=== PATIENT | female | born 1940 | race Caucasian/White ===

== ENCOUNTER → 2024-01-21 11:15 | Outpatient (REF) | payer MEDICARE, OTHER, SELFPAY ==
[2024-01-21 12:46] LABS: % Basophils 0.7 % (0-2); % Eosinophils 3.3 % (0-6); % Immature Granulocytes 0.7 % (0-0.5); % Lymphocytes 32.1 % (20.5-51.1); % Monocytes 11.6 % (1.7-9.3); % Neutrophils 51.6 % (42.2-75.2); Absolute Basophils 0.1 10^3/uL (0-0.2); Absolute Eosinophils 0.3 10^3/uL (0-0.7); Absolute Immature Granulocytes 0.1 10^3/uL (0-0.05); Absolute Lymphocytes 2.7 10^3/uL (1.2-3.4); Absolute Neutrophils 4.3 10^3/uL (1.4-6.5); Hematocrit 38.7 % (37.0-47.0); Hemoglobin 12.8 g/dL (12.0-16.0); Mean Corp Hgb Conc. 33.1 g/dL (33.0-37.0); Mean Corpuscular Hgb 30.5 pg (27.0-31.0); Mean Corpuscular Volume 92.1 fL (81.0-99.0); Mean Platelet Volume 10.6 fL (7.4-10.4); Nucleated Red Blood Cells % 0 %; Platelet Count 293 10^3/uL (130-400); Red Cell Dist. Width 13.4 % (11.5-14.5); White Blood Cell Count 8.4 10^3/uL (4.8-10.8)
[2024-01-21 14:03] LABS: ALT (SGPT) 23 U/L (0-35); AST (SGOT) 21 U/L (14-36); Albumin 4.6 g/dl (3.5-5.0); Alkaline Phosphatase 64 U/L (38-126); Blood Urea Nitrogen 31 mg/dl (7-17); Calcium 9.8 mg/dl (8.4-10.2); Carbon Dioxide 24 mmol/L (22-30); Chloride 105 mmol/L (98-107); Glucose 102 mg/dl (70-99); HDL Cholesterol 92 mg/dl; LDL Cholesterol, Calculated 85 mg/dl; Sodium 137 mmol/L (135-145); Total Bilirubin 0.7 mg/dl (0.2-1.3); Total Cholesterol 193 mg/dl (50-199); Total Protein 7.4 g/dl (6.3-8.2); Triglyceride 84 mg/dl (10-149); Very Low Density Lipoprotein 16 mg/dl (0-30); eGFR 41.31
[2024-01-21 14:17] LABS: Intact PTH 149.5 pg/ml (13.6-85.8)
[2024-01-21 14:24] LABS: Glycohemoglobin (HgbA1c) 5.6 % (4.0-5.6)
[2024-01-21 14:34] LABS: TSH 2.03 uIU/ml (0.47-4.68)
== END ==
LOC: REG 11:15
PROVIDERS: ATTENDING PHYSICIAN Family Medicine
DX: I10 Essential (primary) hypertension (principal); E78.2 Mixed hyperlipidemia; N18.32 Chronic kidney disease, stage 3b; I77.810 Thoracic aortic ectasia; K21.9 Gastro-esophageal reflux disease without esophagitis; R73.01 Impaired fasting glucose
CPT/HCPCS: 36415; 80053; 80061; 83036; 83970; 84443; 85025

== ENCOUNTER 2024-03-04 11:41 | Inpatient (IN) | payer MEDICARE, OTHER, SELFPAY ==
[2024-02-13 12:19] VITALS: BMI 31.3
[2024-02-13 13:55] LABS: Hematocrit 38.1 % (37.0-47.0); Hemoglobin 12.7 g/dL (12.0-16.0); Mean Corp Hgb Conc. 33.3 g/dL (33.0-37.0); Mean Corpuscular Hgb 31.1 pg (27.0-31.0); Mean Corpuscular Volume 93.4 fL (81.0-99.0); Mean Platelet Volume 10.1 fL (7.4-10.4); Platelet Count 325 10^3/uL (130-400); Red Blood Cell Count 4.08 10^6/uL (4.20-5.40); Red Cell Dist. Width 13.5 % (11.5-14.5); White Blood Cell Count 7.4 10^3/uL (4.8-10.8)
[2024-02-13 14:13] LABS: ALT (SGPT) 18 U/L (0-35); AST (SGOT) 24 U/L (14-36); Albumin 5.2 g/dl (3.5-5.0); Alkaline Phosphatase 72 U/L (38-126); Blood Urea Nitrogen 20 mg/dl (7-17); Calcium 10.3 mg/dl (8.4-10.2); Carbon Dioxide 27 mmol/L (22-30); Chloride 100 mmol/L (98-107); Estimated Creatinine Clearance 35 ml/min; Glucose 99 mg/dl (70-99); Potassium 5.3 mmol/L (3.5-5.1); Sodium 140 mmol/L (135-145); Total Bilirubin 0.6 mg/dl (0.2-1.3); Total Protein 8.1 g/dl (6.3-8.2); eGFR 41.06
[2024-02-13 14:18] LABS: Glycohemoglobin (HgbA1c) 5.5 % (4.0-5.6)
--- NOTE | 2024-02-13 16:08 | VNURNOTE ---
Patient is scheduled for an elective R TKA on 03/04/[address] Harrison. Spoke with patient prior to surgery via telephone.
Introduced role of [facility] Liaison. Patient reports that she lives with her spouse Kye in a one story home [place] a [place] community. There is 1 step to enter. Patient will borrow a rolling walker and elevated toilet seat from her neighbor. PCP is Dr Aleshia (~).
Discussed orthopedic program and post surgical plans. Reviewed anticipated length of stay and that goal is for her to return home at discharge.
Also reviewed outpatient PT. Patient is in agreement with tentative plan but feels she will need VN services. She has not thought about an outpt PT service. Patient selects [facility]. She will have support from her spouse when she goes home.
Plan: RUIZ UNGER
[2024-02-27 10:58] VITALS: BMI 31.3
[2024-03-04] VITALS (9 sets, daily range): BP systolic 104–153; BP diastolic 44–85; BMI 31.3
[2024-03-04] MEDS: NORMOSOL-R/PLASMALYTE-A 1000 IV (12:16)
[2024-03-04] MEDS: CELEBREX 200 MG PO (12:18)
[2024-03-04] MEDS: TYLENOL 650 MG PO (12:18)
--- NOTE | 2024-03-04 16:19 | OR.RPT ---
Operative Report
Operative Report
Orthopaedic Surgery Operative Note
DATE OF OPERATION: 03/04/2024
PREOPERATIVE DIAGNOSES: Osteoarthritis, right knee.
POSTOPERATIVE DIAGNOSES: Osteoarthritis, right knee.
OPERATION PERFORMED:
1) Right total knee arthroplasty (CPT 29227)
2) Intraosseous administration of analgesic (CPT 02036)
SURGEON: Pedro aHrrison MD
ASSISTANTS: Qamar Hirsch PA-C who helped with patient and limb positioning and retraction
ANESTHESIA: Spinal by anesthesia plus intraoperative infusion of morphine into the tibial metaphysis by Dr. Harrison
COMPLICATIONS: None.
ESTIMATED BLOOD LOSS: 20mL
DRAINS: None
TOURNIQUET TIME: 51 minutes.
IMPLANTS:
- Edita Persona CR Femur, size 6
- Edita Persona tibia base plate, size D
- Edita Persona ultracongruent articular surface, 10 mm
- DJO [place] bone cement
INDICATIONS: The patient presented to my office with debilitating right knee pain due to osteoarthritis. We reviewed the natural history of this problem, as well as the risks, benefits, and alternatives of various treatment options. The patient
exhausted all nonoperative treatment options and wished to proceed with knee replacement surgery. The patient understood the risks which included, but were not limited to, bleeding, infection, failure to relieve pain, more pain than preop, damage to
blood vessels and nerves, need for reoperation, mechanical failure of the implants, wound healing problems, stiffness, instability, blood clot, pulmonary embolism, myocardial infarction, pneumonia, arrhythmia, CVA, and . The patient accepted
these risks and wished to proceed. All questions were answered, and informed consent was obtained.
PROCEDURE IN DETAIL: The patient was identified in the preoperative holding area. The right knee was identified as the operative site. The patient was taken in the operating room and placed in a supine position on the operating table. Spinal
anesthesia was performed. IV antibiotics and tranexamic acid were administered. An SCD was placed on the left lower extremity. A well-padded tourniquet was placed on the proximal thigh. All bony prominences were well padded. The right lower
extremity was prepped and draped in the usual sterile fashion.
We performed a surgical time-out. An interarticular block was performed with local anesthetic with epinephrine. The limb was exsanguinated with an Esmarch bandage, then the tourniquet was inflated to 250 mmHg. I performed interosseous administration
of morphine-saline solution via a Jamshidi style intraosseous needle into the proximal medial tibial metaphysis as described by Nikolay Ortiz MD. This was performed to aid in pain control. A midline skin incision was made followed by a medial
parapatellar arthrotomy. A subperiosteal peel was performed on the medial tibia. I excised part of the infrapatellar fat pad to improve our visualization as well as tissue over anterior femur. The patella was everted and the knee was flexed. I
excised the remnants of the anterior and posterior cruciate ligaments as well as tibial and femoral osteophytes with rongeurs.
The knee was flexed, and the extramedullary tibial cutting guide was aligned. [place] was aligned at neutral, rotation was centered on the tibial tubercle, and coronal alignment was aligned with the mechanical axis of the tibia and center of the ankle
joint. The cut height was 10mm off the lateral tibia joint surface. The guide was secured into place. The MCL and LCL were protected. The tibia surface was cut. The cut surface was inspected after removal to ensure appropriate height and slope based
on the preoperative plan. The cut was checked with a drop taz. It was centered nicely at the ankle.
A drill was used to open the femoral canal. The intramedullary distal femoral cutting guide was inserted into the femur. This was set at 5 degrees +0. This was secured into place with three pins. The cut level was checked with an clement wing. The
distal femur was cut through the cutting guide. The IM guide was reinserted to double check that the level of resection was flush and in appropriate alignment.
Liana�s line and the transepicondylar axis were marked on the femur. The femoral sizing guide was applied to the anterior femur. Pins were inserted, and the 4-in-1 cutting guide was applied and secured into place. The rotation was compared to
Liana�s line, the transepicondylar axis, and the neutral tibia cut and was found to be appropriate. The width was checked and found to be appropriate and lateralized on the femur. The anterior, posterior, and chamfur cuts were made. A lamina
actionscript developer was used to open the flexion gap, and posterior osteophytes were removed with a curved osteotome. The remnant medial and lateral meniscus were also removed. I prophylactically cauterized the lateral geniculate arteries. A 10mm spacer block
was applied to the flexion gap and was noted to be balanced medially and laterally. The knee was extended, and the block showed symmetric to extension and flexion gaps.
The tibia was exposed and sized. Rotation was set in line with the tibial tubercle and congruent with the femur. The trial was secured into place with two pins. The trial femur was impacted into place, and a trial articular surface was placed. The
knee was taken through range of motion and noted to be stable throughout the arc of motion without gaping or excess tension. The patella was noted to track centrally throughout the arc of motion without need for further releases. No full thickness
cartilage defects.
The trials were removed. The tibia keel was prepared with the punch and the drill. The bone surfaces were irrigated with sterile saline and dried. The cement was mixed in a vacuum mixer. Cement gun was used to apply cement to the tibial surface and
the undersurface of the tibial implant. Cement was pressurized into the tibial canal and tibia surface. The tibial component was impacted into place. Excess cement was removed. Cement was applied to the femoral surface and the femoral component. The
femoral component was impacted into place, and excess cement removed. A trial articular surface was inserted, and the knee was extended while the cement polymerized. The tourniquet was let down, and meticulous hemostasis was achieved. Dilute
betadine was poured into the wound and allowed to soak for 3 minutes. The knee was irrigated with copious normal saline.
Once the cement was polymerized, the trial articular surface was removed. Any excess cement was removed. The knee was trialed, and the final articular surface was selected and inserted into the tibial locking mechanism. The knee was reduced. A fresh
drape was applied to the surgical field.
The arthrotomy was closed with 0-PDS. Once closed, an interarticular block was performed with local anesthetic with epi. The deep dermal layer was closed with 2-0 PDS, and the subcuticular skin was closed with 3-0 monocryl. A Dermabond Prineo
dressing was applied to the skin in full flexion. Once this was completely dry, a sterile waterproof dressing was applied.
The anesthesia team performed an adductor canal block in the OR. The patient awoke from anesthesia without any difficulties. The sponge and instrument counts were correct x2 at the end of the case.
Angel Harrison MD
[2024-03-04] MEDS: ROXICODONE 5 MG PO (16:51)
--- NOTE | 2024-03-04 17:32 | PTCARENOTE ---
pt admitted to 2S room 2110 from the PACU at 1715. pt arrived awake and alert. assessment completed as documented. Right knee dressing clean and dry, ice pack in place. pt offering no c/o pain at time of arrival. pt oriented to room, call richard,
bed controls and plan of care with verbalized understanding. offers no urge to void, pt verbalized understanding of need to call for assistance to get out of bed. will observe.
[2024-03-04] MEDS: ASPIRIN 325 MG PO (17:45)
[2024-03-04] MEDS: NSS 1000 IV (17:46)
[2024-03-04] MEDS: BACTROBAN 2% OINTMENT 1 APPLIC NASAL (20:51)
[2024-03-04] MEDS: COLACE 100 MG PO (20:52)
[2024-03-04] MEDS: SENOKOT 17.2 MG PO (20:52)
[2024-03-04] MEDS: DECADRON 4 MG PO (20:52)
[2024-03-04] MEDS: ANCEF 5 IV (21:00)
[2024-03-05] MEDS: ROXICODONE 5 MG PO ×2 (01:12→08:15)
[2024-03-05 03:20] VITALS: BP 121/75
[2024-03-05] MEDS: ANCEF 5 IV (05:05)
[2024-03-05 07:50] VITALS: BP 124/62
--- NOTE | 2024-03-05 07:50 | W.PN.ORTHO ---
Today's Communication / Plan
-
POD#[address] aHrrison
--WBAT. Ambulate with assistance
--PT/OT
--Pain control as needed
--Aspirin 325mg daily x4 weeks for DVT prophylaxis
--Maintain dressing until postop appointment
--Stable for discharge home today pending PT evaluation
Assessment
.
Distal Motor Intact: Yes
Dressing:
Clean, dry and intact.
Plan
.
Surgery / Date: Right TKA 03/04/24
DVT Prophylaxis: Aspirin
Activity:
Out of bed.
PT/OT
Subjective
.
.:
Patient resting comfortably in bed this morning. She reports that her pain is manageable. She has not worked with PT yet
Vital Signs and Labs
.
Vital Signs and Labs:
Lab Results
02/13/24 12:28
02/13/24 12:28
Temp Pulse Resp BP Pulse Ox
97.7 F 85 18 121/75 96
03/05/24 03:20 03/05/24 03:20 03/05/24 03:20 03/05/24 03:20 03/05/24 03:20
Non-invasive Hgb result: 11.3
Physical Exam
-
Directed exam of right knee with surgical dressing in place. Clean, dry, and intact. Mild expectected edema. Decreased ROM of knee due to pain and swelling. Able to plantarflex and dorsiflex the ankle. Calf soft and nontender. NVI distally
[2024-03-05] MEDS: BACTROBAN 2% OINTMENT 1 APPLIC NASAL (08:15)
[2024-03-05] MEDS: ASPIRIN 325 MG PO (08:16)
[2024-03-05] MEDS: ZESTRIL 10 MG PO (08:16)
[2024-03-05] MEDS: COLACE PO (08:16)
[2024-03-05] MEDS: LIPITOR 10 MG PO (08:16)
[2024-03-05] MEDS: PROTONIX 40 MG PO (08:16)
[2024-03-05] MEDS: DECADRON 4 MG PO (08:16)
[2024-03-05] MEDS: NORVASC 10 MG PO (08:16)
[2024-03-05] MEDS: SENOKOT PO (08:17)
[2024-03-05 09:11] VITALS: BP 133/64; PULSE 101
[2024-03-05 09:55] VITALS: BP 120/74; PULSE 101; O2SAT 95
[2024-03-05 10:31] VITALS: BP 99/65
--- NOTE | 2024-03-05 11:45 | CM ---
Met with patient and at bedside; initial assessment completed
IMM benefit explained; form signed @ 1130
Pharmacy verified: [facility] @ [address] [facility]
Patient and live in one story [place]; 1 step to enter; bathroom has stall shower with grab bar
PLOF: patient reported she is independent with ADLs; prior to surgery she ambulated without a device
DME: going home with a rolling walker
No SNF or Home Health utilization history
will transport home
Case Management Consult completed. Discussed discharge planning; recommendation for Home PT until she is able to start outpatient PT; Home Health agency options provided; preference [facility]; referral sent and acknowledged by [facility] liaison
Plan: Discharge to home with [facility] Home [facility] for PT
--- NOTE | 2024-03-05 12:17 | W.DS.TRANS ---
DC Summary - Teaching Associate
-
Discharge Instructions:
Sleep Apnea Risk Low
Discharge Diagnosis/Procedures Right Total Knee Replacement
Diet As tolerated
Activity With assistance
Additional Activity WBAT RLE with use of walker/cane for ambulatory
assistance
Driving Restrictions Not until seen by your Dr
Bathing Restrictions OK to Shower
Wound Care Leave Mepilex dressing intact until post-op
visit.
Instructions:
Stand-Alone Forms:
Changes to Home Medications: No
Discharge Medications:
DC Medications w/original date entered in [facility]
acetaminophen 500 mg tablet (Tylenol Extra Strength) 1,000 mg PO Q6H PRN pain 02/27/24
amlodipine 10 mg tablet 10 mg PO DAILY 02/27/24
aspirin 81 mg chewable tablet 81 mg PO DAILY 02/27/24
atorvastatin 10 mg tablet 10 mg PO DAILY 02/27/24
lisinopril 10 mg tablet 10 mg PO DAILY 02/27/24
omeprazole 20 mg tablet,delayed release 20 mg PO DAILY 02/27/24
aspirin 325 mg tablet 325 mg PO DAILY Blood clot prevention/tx #30 tabs 03/04/24
dexamethasone 4 mg tablet 4 mg PO BID 3 days #7 tabs 03/04/24
docusate sodium 100 mg capsule 100 mg PO BID Constipation #30 caps 03/04/24
ondansetron 4 mg disintegrating tablet 4 mg PO Q6H PRN nausea and vomiting #30 tabs 03/04/24
oxycodone 5 mg tablet 5 mg PO Q6 PRN moderate pain #30 tabs 03/04/24
Home Medication Changes
Pending Results: No
--- NOTE | 2024-03-05 12:18 | W.DCSUMMARY ---
Discharge Summary
Discharge Data
Date of Admission: 03/04/24
Date of Discharge: 03/05/24
-
Pending Results: No
Hospital Course
84 year old female admitted to the hospital following elective right total knee replacement on 03/04/[address] Harrison. She was monitored overnight. She was able to work with physical therapy. Once she was medically stable and her pain was
controlled, she was stable for discharge to home. She will be weight bearing as tolerated to the right leg. She will take aspirin 325mg daily for DVT prophylaxis for one month postoperatively. She will have an outpatient follow up appointment in two
weeks.
Discharge Plan
-
Patient Disposition: Home (Routine Discharge)
Discharge Diagnosis/Procedures: Right Total Knee Replacement
Diet: As tolerated
Activity: With assistance
Additional Activity: WBAT RLE with use of walker/cane for ambulatory assistance
Driving Restrictions: Not until seen by your Dr
Bathing Restrictions: OK to Shower
Wound Care: Leave Mepilex dressing intact until post-op visit.
Referrals:
Gio Monk DO [Family Provider] -
Pedro Harrison MD [Active] - in two weeks
Prescriptions:
New
aspirin 325 mg Tablet
325 mg PO DAILY Qty: 30 0RF
docusate sodium 100 mg Capsule
100 mg PO BID Qty: 30 0RF
dexamethasone 4 mg Tablet
4 mg PO BID 3 Days Qty: 7 0RF
oxycodone 5 mg Tablet
5 mg PO Q6 PRN (Reason: moderate pain) Qty: 30 0RF
ondansetron 4 mg tablet,disintegrating
4 mg PO Q6H PRN (Reason: nausea and vomiting) Qty: 30 0RF
Continued
atorvastatin 10 mg Tablet
10 mg PO DAILY
acetaminophen [Tylenol Extra Strength] 500 mg Tablet
1,000 mg PO Q6H PRN (Reason: pain)
amlodipine 10 mg Tablet
10 mg PO DAILY
lisinopril 10 mg Tablet
10 mg PO DAILY
omeprazole 20 mg Tablet,Delayed Release (Dr/Ec)
20 mg PO DAILY
Held
aspirin 81 mg Tablet,Chewable
81 mg PO DAILY
Hold Instructions: Resume on 04/03/24. Hold while taking Aspirin 325mg
Discontinued
mupirocin 2 % Ointment
1 applic TOPICAL BID
Discharge Orders:
Discharge Patient (As Directed); Ordered 03/05/24
Ordered By: Thuy Street
Discharge Date and Time
Print Language: OMANI
== END 2024-03-05 12:23 | disposition home health service (06) | DRG 470 ==
LOC: 2 SOUTH 11:41
PROVIDERS: ADMITTING PHYSICIAN Orthopaedic Surgery; FAMILY PHYSICIAN Family Medicine
PROC: 0SRC0J9 Replacement of Right Knee Joint with Synthetic Substitute, Cemented, Open Approach (ICD-10-PCS; 2024-03-04)
DX: M17.11 Unilateral primary osteoarthritis, right knee (principal); E78.2 Mixed hyperlipidemia; M51.36 Other intervertebral disc degeneration, lumbar region; E55.9 Vitamin D deficiency, unspecified; K21.9 Gastro-esophageal reflux disease without esophagitis; K44.9 Diaphragmatic hernia without obstruction or gangrene; N28.1 Cyst of kidney, acquired; R91.1 Solitary pulmonary nodule; I71.20 Thoracic aortic aneurysm, without rupture, unspecified; I12.9 Hypertensive chronic kidney disease with stage 1 through stage 4 chronic kidney disease, or unspecified chronic kidney disease; N18.32 Chronic kidney disease, stage 3b; Z87.19 Personal history of other diseases of the digestive system; Z79.82 Long term (current) use of aspirin; Z79.52 Long term (current) use of systemic steroids; Z80.41 Family history of malignant neoplasm of ovary; Z80.49 Family history of malignant neoplasm of other genital organs
CPT/HCPCS: 36415; 73560; 80053; 83036; 85027; 86850; 86900; 86901; 87070; 97116; 97162; 97530; 97535; C1713; C1776

== ENCOUNTER 2024-04-13 12:58 | Outpatient (RCR) | payer MEDICARE, OTHER, SELFPAY | END 2024-04-13 23:59 | disposition home or self-care (01) | LOC: RPT 12:58 | PROVIDERS: ATTENDING PHYSICIAN Orthopaedic Surgery; FAMILY PHYSICIAN Family Medicine | DX: Z47.1 Aftercare following joint replacement surgery (principal); Z96.651 Presence of right artificial knee joint; R26.89 Other abnormalities of gait and mobility; Z73.6 Limitation of activities due to disability | CPT/HCPCS: 97010; 97110; 97162 ==

== ENCOUNTER 2024-05-10 13:17 | Outpatient (RCR) | payer MEDICARE, OTHER, SELFPAY | END 2024-05-10 23:59 | disposition home or self-care (01) | LOC: RPT 13:17 | PROVIDERS: ATTENDING PHYSICIAN Orthopaedic Surgery; FAMILY PHYSICIAN Family Medicine | DX: Z47.1 Aftercare following joint replacement surgery (principal); Z96.651 Presence of right artificial knee joint (principal); Z73.6 Limitation of activities due to disability | CPT/HCPCS: 97010; 97110; 97140 ==

== ENCOUNTER 2024-05-24 12:55 | Outpatient (RCR) | payer MEDICARE, OTHER, SELFPAY | END 2024-06-03 07:10 | disposition home or self-care (01) | LOC: RPT 12:55 | PROVIDERS: ATTENDING PHYSICIAN Orthopaedic Surgery; FAMILY PHYSICIAN Family Medicine | DX: Z47.1 Aftercare following joint replacement surgery (principal); Z96.651 Presence of right artificial knee joint; Z73.6 Limitation of activities due to disability | CPT/HCPCS: 97010; 97110 ==

== ENCOUNTER → 2024-08-09 12:57 | Outpatient (REF) | payer MEDICARE, OTHER, SELFPAY | LOC: HWRCS 12:57 | PROVIDERS: ATTENDING PHYSICIAN Internal Medicine Interventional Cardiology; FAMILY PHYSICIAN Family Medicine | DX: I71.21 Aneurysm of the ascending aorta, without rupture (principal) | CPT/HCPCS: 93306 ==

== ENCOUNTER → 2024-08-31 11:21 | Outpatient (REF) | payer MEDICARE, OTHER, SELFPAY ==
[2024-08-31 12:18] LABS: % Basophils 0.8 % (0-2); % Eosinophils 2.2 % (0-6); % Immature Granulocytes 0.1 % (0-0.5); % Neutrophils 51.9 % (42.2-75.2); Absolute Basophils 0.1 10^3/uL (0-0.2); Absolute Eosinophils 0.2 10^3/uL (0-0.7); Absolute Lymphocytes 3.1 10^3/uL (1.2-3.4); Absolute Monocytes 0.8 10^3/uL (0.1-0.6); Absolute Neutrophils 4.5 10^3/uL (1.4-6.5); Hematocrit 43.7 % (37.0-47.0); Hemoglobin 14.2 g/dL (12.0-16.0); Mean Corp Hgb Conc. 32.5 g/dL (33.0-37.0); Mean Corpuscular Hgb 29.3 pg (27.0-31.0); Mean Corpuscular Volume 90.1 fL (81.0-99.0); Mean Platelet Volume 10.6 fL (7.4-10.4); Nucleated Red Blood Cells % 0 %; Platelet Count 285 10^3/uL (130-400); Red Blood Cell Count 4.85 10^6/uL (4.20-5.40); Red Cell Dist. Width 14.5 % (11.5-14.5); White Blood Cell Count 8.6 10^3/uL (4.8-10.8)
[2024-08-31 12:45] LABS: ALT (SGPT) 15 U/L (0-35); AST (SGOT) 21 U/L (14-36); Albumin 5.4 g/dl (3.5-5.0); Alkaline Phosphatase 79 U/L (38-126); Blood Urea Nitrogen 31 mg/dl (7-17); Calcium 10.2 mg/dl (8.4-10.2); Carbon Dioxide 23 mmol/L (22-30); Chloride 102 mmol/L (98-107); Glucose 106 mg/dl (70-99); Potassium 5.4 mmol/L (3.5-5.1); Sodium 138 mmol/L (135-145); Total Bilirubin 0.8 mg/dl (0.2-1.3); Total Cholesterol 190 mg/dl (50-199); Total Protein 8.6 g/dl (6.3-8.2); Triglyceride 91 mg/dl (10-149); Very Low Density Lipoprotein 18 mg/dl (0-30); eGFR 45.19
[2024-08-31 13:06] LABS: HDL Cholesterol 109 mg/dl; LDL Cholesterol, Calculated 63 mg/dl
[2024-08-31 14:15] LABS: Urine Albumin 2+ (Neg - Trace); Urine Bilirubin 1+ (Negative); Urine Character Clear (Clear); Urine Color Yellow; Urine Glucose Negative (Negative); Urine Ketone Negative (Negative); Urine Leukocyte 1+ (Negative); Urine Nitrite Negative (Negative); Urine Occult Blood Negative (Negative); Urine Urobilinogen Negative (Neg - 1+)
[2024-08-31 14:21] LABS: TSH 3.12 uIU/ml (0.47-4.68)
[2024-08-31 14:24] LABS: Urine Bacteria Few (Negative); Urine Red Blood Cell 0-2 /HPF (0-2)
[2024-08-31 14:29] LABS: Glycohemoglobin (HgbA1c) 5.3 % (4.0-5.6)
== END ==
LOC: REG 11:21
PROVIDERS: ATTENDING PHYSICIAN Family Medicine
DX: Z79.899 Other long term (current) drug therapy (principal); R73.01 Impaired fasting glucose; E78.2 Mixed hyperlipidemia; N18.32 Chronic kidney disease, stage 3b
CPT/HCPCS: 36415; 80053; 80061; 81003; 81015; 83036; 84443; 85025

== ENCOUNTER → 2025-05-25 15:54 | Outpatient (REF) | payer MEDICARE, OTHER, SELFPAY ==
[2025-05-25 16:47] LABS: Potassium 5.8 mmol/L (3.5-5.1)
== END ==
LOC: CLAB 15:54
PROVIDERS: ATTENDING PHYSICIAN Family Medicine
DX: E87.5 Hyperkalemia (principal)
CPT/HCPCS: 36415; 84132